=== PATIENT | male | born 1945 | race African-American/Black ===

== ENCOUNTER 2025-03-12 16:44 | Emergency (ER) | payer MEDICARE ==
[~2025-03-12] VITALS: Ht 182.9 cm; Wt 74.0 kg
[2025-03-12 16:55] VITALS: O2SAT 98
[2025-03-12 18:13] LABS: BASOPHILS % 0.4 % (0.0-2.0); EOSINOPHILS % 0.8 % (0.0-5.0); HEMATOCRIT. 37.9 % (42.0-52.0); HEMOGLOBIN. 12.3 g/dL (14.0-18.0); LYMPHOCYTES % 11.8 % (20.0-50.0); MEAN PLATELET VOLUME 7.9 fl (7.4-10.4); MONOCYTES % 10.8 % (2.0-8.0); NEUTROPHILS % 76.2 % (40.0-76.0); PLATELET 225 x1000/uL (130-400); RED BLOOD CELL COUNT 4.37 mill/uL (4.7-6.1); RED CELL DISTRIBUTION WIDTH 14.7 % (11.6-14.6)
[2025-03-12 18:23] LABS: CREATININE 1.7 mg/dL (0.6-1.3); UREA NITROGEN BLOOD 30 mg/dL (9-23)
[2025-03-12 18:24] LABS: TROPONIN I HIGH SENSITIVITY 6 ng/L (3.0-53)
[2025-03-12] MEDS ORDERED: LOSARTAN 100 MG TABLET PO ONE (21:00)
[2025-03-12] MEDS: LOSARTAN 50 MG TABLET PO NR (21:10)
[2025-03-12] MEDS: AMLODIPINE 10MG TABLET PO ONE (21:10)
[2025-03-12 21:36] VITALS: BP 156/82; PULSE 66; RESP 15; TEMP 36.5; O2SAT 98
== END 2025-03-12 21:36 ==
LOC: ER 16:44
DX: S09.90XA Unspecified injury of head, initial encounter (principal); E78.00 Pure hypercholesterolemia, unspecified; F02.80 Dementia in other diseases classified elsewhere, unspecified severity, without behavioral disturbance, psychotic disturbance, mood disturbance, and anxiety; G20.A1 Parkinson's disease without dyskinesia, without mention of fluctuations; I11.0 Hypertensive heart disease with heart failure; I50.9 Heart failure, unspecified; X58.XXXA Exposure to other specified factors, initial encounter; Y93.89 Activity, other specified; Y92.89 Other specified places as the place of occurrence of the external cause; Y99.8 Other external cause status
CPT/HCPCS: 36415; 80048; 84484; 85025; 93005; 99284; 99285